=== PATIENT | female | born 1970 | race Caucasian/White ===

== ENCOUNTER 2016-07-03 15:52 | Emergency (ER) | payer OTHER ==
[~2016-07-03] VITALS: Ht 157.5 cm; Wt 51.0 kg
[~2016-07-03 15:52] MED LIST: ALBU2.5I INH; ALBU8I INH; DIAZ5 PO; LYRI150C PO; REQU4TAB3 PO
[2016-07-03 15:55] VITALS: BP 131/85; PULSE 88; RESP 16; TEMP 98.5; O2SAT 99
[2016-07-03] MEDS ORDERED: predniSONE 50 MG TAB PO ONE (16:30)
[2016-07-03] MEDS ORDERED: FAMOTIDINE 20 MG TAB PO ONE (16:30)
[2016-07-03] MEDS ORDERED: RESP: ALBUTEROL 2.5 MG/IPRATROPIUM 0.5 MG NEB (SCH) INH ONE (16:30)
--- NOTE | 2016-07-03 16:58 | PD ---
HPI Chief Complaint: Respiratory Symptoms Time Seen by Provider: 16:25 Travel History International Travel<30 days: No Contact w/Intl Traveler<30days: No Traveled to known affect area: No History of Present Illness HPI 46 year old female with a 4 days hx of persistent cough, wheezing, and nasal congestion. Patient has hx of sarcoidosis with chronic cough per patient. Apparently her nebulizer machine stopped working several days ago & her cough/ wheezing worsened since then. She denies fever, chills,chest pain, N/V. She does report acid reflux x 3days & difficulty sleeping due to her RLS. PFSH Past Medical History Asthma: Yes Blood Disorders: No Heart Rhythm Problems: No Cancer: Yes (HX CERVICAL) Cardiovascular Problems: No High Cholesterol: No Chemotherapy: No Chest Pain: No Congestive Heart Failure: No COPD: Yes Diminished Hearing: No Endocrine: No Genitourinary: No Immune Disorder: No Medical other: Yes (lung issues, restless leg syndrome) Neurologic: No Psychiatric: No Reproductive: No Respiratory: Yes (ASTHMA) Immunizations Current: Yes Pneumonia: Yes Radiation Therapy: No Sleep Apnea: No Tetanus Vaccination: Unknown ?: Not : 2 Para: 2 Tubal Ligation: Yes Past Surgical History Section: Yes (x2) Cholecystectomy: Yes Gynecologic Surgery: Yes (TUBAL LIGATION) Other Surgery: Yes Social History Alcohol Use: No Tobacco Use: Yes (1/2 -1 ppd) Substance Use: No Allergies-Medications (Allergen,Severity, Reaction): Coded Allergies: Levaquin (Unverified Allergy, Intermediate, 12/17/15) BONE PAIN Reported Meds & Prescriptions Reported Meds & Active Scripts Active Valium (Diazepam) 5 Mg Tab 10 Mg PO HS Resp: Albuterol 2.5 Mg/3 Ml Neb (Albuterol Sulfate) 2.5 Mg/3 Ml Nebu 2.5 Mg INH Q4H PRN 30 Days Reported Lyrica (Pregabalin) 150 Mg Cap 150 Mg PO TID Ventolin Hfa (Albuterol Sulfate) 8 Gm Aero 1 Puff INH TID * SHAKE WELL BEFORE USE * Requip 4 mg (ROPINIROLE HYDROCHLORIDE 4 mg) 4 Mg Tab 4 Mg PO HS Review of Systems Except as stated in HPI: all other systems reviewed are Neg Physical Exam Narrative GENERAL: Well appearing white female SKIN: Warm and dry. HEAD: Normocephalic. EYES: No scleral icterus. No injection or drainage. NECK: Supple, trachea midline. No JVD or lymphadenopathy. CARDIOVASCULAR: Regular rate and rhythm without murmurs, gallops, or rubs. RESPIRATORY: Breath sounds equal bilaterally. No accessory muscle use. bilateral expiratory wheezes. No rales or rhonchi. GASTROINTESTINAL: Abdomen soft, non-tender, nondistended. MUSCULOSKELETAL: No cyanosis, or edema. BACK: Nontender without obvious deformity. No CVA tenderness. Data Data Last Documented VS Vital Signs Date Time Temp Pulse Resp B/P Pulse Ox O2 Delivery O2 Flow Rate FiO2 07/03/16 15:55 98.5 88 16 131/85 99 Orders Electrocardiogram (07/03/16 16:27) Albuterol-Ipratropium Neb (Duoneb Neb) (07/03/16 16:30) Prednisone (Deltasone) (07/03/16 16:30) Famotidine (Pepcid) (07/03/16 16:30) MDM Medical Decision Making Medical Screen Exam Complete: Yes Emergency Medical Condition: Yes Differential Diagnosis asthma exacerbation vs URI vs PNA Narrative Course 46 year old female with a 4 days hx of persistent cough, wheezing, and nasal congestion. Patient has hx of sarcoidosis with chronic cough per patient. Apparently her nebulizer machine stopped working several days ago & her cough/ wheezing worsened since then. She denies fever, chills,chest pain, N/V. She does report acid reflux x 3days & difficulty sleeping due to her RLS. EKG: NSR rate [address] segment changes. Patient reevaluated after breathing [place] wheezing improved, patient reports symptoms improvement & requesting discharge. Diagnosis Primary Impression: Asthma Qualified Code: J45.31 - Mild persistent asthma with acute exacerbation Patient Instructions: General Instructions Scripts Nebulizer 1 Mis Mis #1 EA .ROUTE DIRECTED Ref 0 Prov:Griselda MembrenoP 07/03/16 Prednisone 20 Mg Tab20 Mg PO BID #14 TAB Ref 0 Prov:Griselda Membreno 07/03/16 Disposition: 01 DISCHARGE HOME Condition: Stable Griselda Membreno July 03, 2016 16:58
[2016-07-03] MEDS ORDERED: NEBULIZER1 MI1 (17:11)
[2016-07-03] MEDS ORDERED: PRED20 PO (17:11)
--- NOTE | 2016-07-03 17:23 | PD ---
Data Data Last Documented VS Vital Signs Date Time Temp Pulse Resp B/P Pulse Ox O2 Delivery O2 Flow Rate FiO2 07/03/16 17:17 70 95 07/03/16 15:55 98.5 16 131/85 Orders Electrocardiogram (07/03/16 16:27) Albuterol-Ipratropium Neb (Duoneb Neb) (07/03/16 16:30) Prednisone (Deltasone) (07/03/16 16:30) Famotidine (Pepcid) (07/03/16 16:30) MDM Supervised Visit with PAMELA: Yes Narrative Course The history, exam, and medical decision-making in the associated mid-level provider note were completed with my assistance. I reviewed and agree with the findings presented. I attest that I had a [id number] encounter with the patient on the same day, and personally performed and documented my assessment and findings in the medical record. *My assessment and Findings: 46 year-old woman with sarcoidosis, broken nebulizer times a couple days, and restless leg syndrome. She looks well. She has wheezing and rhonchi on exam but is only minimally labored. She is improved after steroids bronchodilators. Recommend outpatient follow-up for restless leg syndrome, we'll give her prescription for nebulizer, she has albuterol at home, and a short steroid taper. Diagnosis Primary Impression: Asthma Qualified Code: J45.31 - Mild persistent asthma with acute exacerbation Patient Instructions: General Instructions Departure Forms: Tests/Procedures Scripts Nebulizer 1 Mis Mis #1 EA .ROUTE DIRECTED Ref 0 Prov:Griselda MembrenoP 07/03/16 Prednisone 20 Mg Tab20 Mg PO BID #14 TAB Ref 0 Prov:Griselda Membreno [employer] 07/03/16 Disposition: 01 DISCHARGE HOME Condition: Stable Arias Harrison MD July 03, 2016 17:23
--- NOTE | 2016-07-04 14:41 | EKG ---
Date Performed: 07/03/2016 Time Performed: 16:32:55 PTAGE: 46 years EKG: Sinus rhythm WITH SHORT NH INTERVAL BORDERLINE ECG NO PREVIOUS TRACING DOCTOR: Fidencio Iglesias Interpretating Date/Time 07/04/2016 14:39:06
== END 2016-07-03 17:25 | disposition home or self-care (01) ==
LOC: NEPD 15:52
DX: J45.909 Unspecified asthma, uncomplicated (principal); D86.9 Sarcoidosis, unspecified; J44.9 Chronic obstructive pulmonary disease, unspecified; Z79.899 Other long term (current) drug therapy
CPT/HCPCS: 93005; 94664; 99283; J7512

== ENCOUNTER 2017-01-12 19:13 | Emergency (ER) | payer OTHER ==
[~2017-01-12] VITALS: Ht 157.5 cm; Wt 55.0 kg
[~2017-01-12 19:13] MED LIST changes: +NEBULIZER1 MI1; +PRED20 PO
[2017-01-12 19:31] VITALS: BP 142/63; PULSE 83; RESP 16; TEMP 98.5; O2SAT 97
--- NOTE | 2017-01-12 20:01 | PD ---
HPI Chief Complaint: Pain: Acute or Chronic Time Seen by Provider: 19:58 Travel History International Travel<30 days: No Contact w/Intl Traveler<30days: No Traveled to known affect area: No History of Present Illness HPI 46 yo F c/o R knee pain starting suddenly while walking. pt called ems because pt couldn't ambulate any further. no fall. pain constant and most prominent in the posterior aspect of the R knee. no similar prior episodes. pt wonders if she may have walked too far leading to injury. no stumbling/uneven ground. PFSH Past Medical History Asthma: Yes Blood Disorders: No Heart Rhythm Problems: No Cancer: Yes (HX CERVICAL) Cardiovascular Problems: No High Cholesterol: No Chemotherapy: No Chest Pain: No Congestive Heart Failure: No COPD: Yes Diminished Hearing: No Endocrine: No Genitourinary: No Immune Disorder: No Neurologic: No Psychiatric: No Reproductive: No Respiratory: Yes (ASTHMA) Immunizations Current: Yes Pneumonia: Yes Radiation Therapy: No Sleep Apnea: No ?: Not : 2 Para: 2 Tubal Ligation: Yes Past Surgical History Section: Yes (x2) Cholecystectomy: Yes Gynecologic Surgery: Yes (TUBAL LIGATION) Other Surgery: Yes Social History Alcohol Use: No Tobacco Use: Yes (1/2 -1 ppd) Substance Use: No Allergies-Medications (Allergen,Severity, Reaction): Coded Allergies: levofloxacin (Unverified Allergy, Intermediate, 01/12/17) BONE PAIN Reported Meds & Prescriptions Reported Meds & Active Scripts Active Nebulizer 1 Mis Mis 1 Ea .ROUTE DIRECTED Prednisone 20 Mg Tab 20 Mg PO BID Valium (Diazepam) 5 Mg Tab 10 Mg PO HS Resp: Albuterol 2.5 Mg/3 Ml Neb (Albuterol Sulfate) 2.5 Mg/3 Ml Nebu 2.5 Mg INH Q4H PRN 30 Days Reported Lyrica (Pregabalin) 150 Mg Cap 150 Mg PO TID Ventolin Hfa (Albuterol Sulfate) 8 Gm Aero 1 Puff INH TID * SHAKE WELL BEFORE USE * Requip 4 mg (ROPINIROLE HYDROCHLORIDE 4 mg) 4 Mg Tab 4 Mg PO HS Review of Systems General / Constitutional: No: Fever Cardiovascular: No: Chest Pain or Discomfort Respiratory: No: Cough, Shortness of Breath Musculoskeletal: Positive: Pain Physical Exam Narrative GENERAL: 46 yo F, WNWD, NAD, mild distress SKIN: Warm and dry. HEAD: Normocephalic. EYES: No scleral icterus. No injection or drainage. NECK: Supple, trachea midline. No JVD or lymphadenopathy. MUSCULOSKELETAL: No cyanosis, or edema. Minimal TTP R posterior Knee. No mass. No focal bony tenderness. No deformity. NO asymmetry of the calves or sign of DVT. BACK: Nontender without obvious deformity. No CVA tenderness. Data Data Last Documented VS Vital Signs Date Time Temp Pulse Resp B/P (MAP) Pulse Ox O2 Delivery O2 Flow Rate FiO2 01/12/17 19:31 98.5 83 16 142/63 (89) 97 Room Air VS noted Orders Orders Crutches (01/12/17 ) ^ Knee Immobilizer (01/12/17 20:13) MDM Medical Decision Making Medical Screen Exam Complete: Yes Emergency Medical Condition: Yes Medical Record Reviewed: Yes Differential Diagnosis dvt, tellez's cyst, fracture, dislocation of patella Narrative Course knee exam is essentially normal no focus of bony tenderness and fracture is considered very unlikely knee immobilizer and crutches refills for medications as below follow up with ortho Diagnosis Primary Impression: Injury of right knee Qualified Codes: S89.91XA - Unspecified injury of right lower leg, initial encounter Additional Impression: Medication refill Referrals: Shaheen Sol MD call for appointment Med/Other Pt SpecificInfo: Prescription(s) given Scripts Pregabalin (Lyrica) 150 Mg Cap 150 MG PO TID, #90 CAP 0 Refills Prov: Andrew Lebron MD 01/12/17 Ropinirole (Requip) 4 Mg Tab 4 MG PO HS, #30 TAB 0 Refills Prov: Andrew Lebron MD 01/12/17 Disposition: 01 DISCHARGE HOME Condition: Stable Andrew Lebron MD Jan 12, 2017 20:01
[2017-01-12] MEDS ORDERED: REQU4TAB3 PO (20:20)
[2017-01-12] MEDS ORDERED: LYRI150C PO (20:20)
== END 2017-01-12 20:44 | disposition home or self-care (01) ==
LOC: NEPK 19:13
DX: S89.91XA Unspecified injury of right lower leg, initial encounter (principal); J45.909 Unspecified asthma, uncomplicated; J44.9 Chronic obstructive pulmonary disease, unspecified; F17.200 Nicotine dependence, unspecified, uncomplicated; Y93.01 Activity, walking, marching and hiking; Z88.8 Allergy status to other drugs, medicaments and biological substances; Z76.0 Encounter for issue of repeat prescription; Z79.899 Other long term (current) drug therapy
CPT/HCPCS: 99284; E0113

== ENCOUNTER 2017-04-02 07:40 | Emergency (ER) | payer OTHER ==
[2017-04-02 07:41] VITALS: BP 158/76; PULSE 90; RESP 24; TEMP 98.7; O2SAT 94
[2017-04-02] MEDS ORDERED: VENTAER INH (07:50)
--- NOTE | 2017-04-02 08:11 | PD ---
HPI Chief Complaint: Respiratory Symptoms Time Seen by Provider: 08:02 Travel History International Travel<30 days: No Contact w/Intl Traveler<30days: No Traveled to known affect area: No History of Present Illness HPI The patient is a 47-year-old female who presents emergency department for shortness of breath and wheezing of one days duration. The patient has a history of COPD, asthma, and sarcoidosis. She also has a history of tobacco use. The patient states her shortness of breath started last night, she has been using nebulizers at home, with minimal relief. She denies any new cough, does complain of mild chest tightness associated with the wheezing. She denies any history of pulmonary embolus and, DVT, congestive heart failure. She denies any recent hospitalizations, prolonged travel, or recent surgery. She denies any assisted fever, chills, or sweats. The patient was being seen by her primary physician, Dr. Valenzuela, however, recently changed insurance and has to find a new physician. PFSH Past Medical History Asthma: Yes Blood Disorders: No Heart Rhythm Problems: No Cancer: Yes (HX CERVICAL) Cardiovascular Problems: No High Cholesterol: No Chemotherapy: No Chest Pain: No Congestive Heart Failure: No COPD: Yes Diminished Hearing: No Endocrine: No Genitourinary: No Immune Disorder: No Neurologic: No Psychiatric: No Reproductive: No Respiratory: Yes (ASTHMA) Immunizations Current: Yes Pneumonia: Yes Radiation Therapy: No Sleep Apnea: No Tetanus Vaccination: Unknown Influenza Vaccination: No ?: Not LMP: 04/01/17 : 2 Para: 2 Tubal Ligation: Yes Past Surgical History Section: Yes (x2) Cholecystectomy: Yes Gynecologic Surgery: Yes (TUBAL LIGATION) Other Surgery: Yes Social History Alcohol Use: Yes (rarely ) Tobacco Use: Yes Substance Use: No Allergies-Medications (Allergen,Severity, Reaction): Coded Allergies: levofloxacin (Unverified Allergy, Intermediate, 04/02/17) BONE PAIN Reported Meds & Prescriptions Reported Meds & Active Scripts Active Lyrica (Pregabalin) 150 Mg Cap 150 Mg PO TID Requip (Ropinirole) 4 Mg Tab 4 Mg PO HS Nebulizer 1 Mis Mis 1 Ea .ROUTE DIRECTED Reported Ventolin Hfa 18 GM Inh (Albuterol Sulfate) 90 Mcg/Act Aer 2 Puff INH Q4-6H PRN Review of Systems Except as stated in HPI: all other systems reviewed are Neg General / Constitutional: No: Fever HENT: No: Lightheadedness Cardiovascular: Positive: Chest Pain or Discomfort (tightness) Respiratory: Positive: Shortness of Breath, Wheezing, No: Cough Gastrointestinal: No: Nausea, Vomiting Musculoskeletal: No: Edema Physical Exam Narrative GENERAL: Awake, alert, 47-year-old female who appears her stated age and is in no acute respiratory distress. SKIN: Focused skin assessment warm/dry. HEAD: Atraumatic. Normocephalic. EYES: Pupils equal and round. No scleral icterus. No injection or drainage. ENT: No nasal bleeding or discharge. Breast positive tobacco. NECK: Trachea midline. No JVD. CARDIOVASCULAR: Regular rate and rhythm. No murmur appreciated. RESPIRATORY: No accessory muscle use. Prolonged expiratory phase and wheezing in all 4 lung mathews. GASTROINTESTINAL: Abdomen soft, non-tender, nondistended. MUSCULOSKELETAL: No obvious deformities. No clubbing. No cyanosis. No edema. NEUROLOGICAL: Awake and alert. No obvious cranial nerve deficits. Motor grossly within normal limits. Normal speech. PSYCHIATRIC: Appropriate mood and affect; insight and judgment normal. Data Data Last Documented VS Vital Signs Date Time Temp Pulse Resp B/P (MAP) Pulse Ox O2 Delivery O2 Flow Rate FiO2 04/02/17 07:41 98.7 90 24 158/76 (103) 94 Orders Orders Complete Blood Count With Diff (04/02/17 08:06) Basic Metabolic Panel (Bmp) (04/02/17 08:06) B-Type Natriuretic Peptide (04/02/17 08:06) Magnesium (Mg) (04/02/17 08:06) Iv Access Insert/Monitor (04/02/17 08:06) Electrocardiogram (04/02/17 08:06) Ecg Monitoring (04/02/17 08:06) Oximetry (04/02/17 08:06) Oxygen Administration (04/02/17 08:06) Chest, Single Ap (04/02/17 08:06) Sodium Chloride 0.9% Flush (Ns Flush) (04/02/17 08:15) Methylprednisolone So Succ Inj (Solumedr (04/02/17 08:15) Albuterol-Ipratropium Neb (Duoneb Neb) (04/02/17 08:15) Sodium Chlor 0.9% 1000 Ml Inj (Ns 1000 M (04/02/17 08:15) Labs Laboratory Tests Test 04/02/17 08:30 White Blood Count 9.5 TH/MM3 Red Blood Count 4.74 MIL/MM3 Hemoglobin 13.3 GM/DL Hematocrit 39.2 % Mean Corpuscular Volume 82.6 FL Mean Corpuscular Hemoglobin 28.1 PG Mean Corpuscular Hemoglobin Concent 34.0 % Red Cell Distribution Width 16.1 % Platelet Count 362 TH/MM3 Mean Platelet Volume 7.5 FL Neutrophils (%) (Auto) 52.0 % Lymphocytes (%) (Auto) 36.1 % Monocytes (%) (Auto) 9.1 % Eosinophils (%) (Auto) 2.5 % Basophils (%) (Auto) 0.3 % Neutrophils # (Auto) 5.0 TH/MM3 Lymphocytes # (Auto) 3.4 TH/MM3 Monocytes # (Auto) 0.9 TH/MM3 Eosinophils # (Auto) 0.2 TH/MM3 Basophils # (Auto) 0.0 TH/MM3 CBC Comment DIFF FINAL Differential Comment Blood Urea Nitrogen 7 MG/DL Creatinine 0.90 MG/DL Random Glucose 175 MG/DL Calcium Level 9.3 MG/DL Magnesium Level 2.0 MG/DL Sodium Level 136 MEQ/L Potassium Level 3.2 MEQ/L Chloride Level 101 MEQ/L Carbon Dioxide Level 30.0 MEQ/L Anion Gap 5 MEQ/L Estimat Glomerular Filtration Rate 68 ML/MIN B-Type Natriuretic Peptide 47 PG/ML MDM Medical Decision Making Medical Screen Exam Complete: Yes Emergency Medical Condition: Yes Medical Record Reviewed: Yes Interpretation(s) EKG reveals normal sinus rhythm with a rate of 77. No ischemic changes or ectopy noted. Last Impressions Chest X-Ray 04/02/17 0806 Signed Impressions: Service Date/Time: Sunday, April 02, 2017 08:16 - CONCLUSION: No acute disease. Norma Sebastian MD Laboratory Tests Test 04/02/17 08:30 White Blood Count 9.5 TH/MM3 Red Blood Count 4.74 MIL/MM3 Hemoglobin 13.3 GM/DL Hematocrit 39.2 % Mean Corpuscular Volume 82.6 FL Mean Corpuscular Hemoglobin 28.1 PG Mean Corpuscular Hemoglobin Concent 34.0 % Red Cell Distribution Width 16.1 % Platelet Count 362 TH/MM3 Mean Platelet Volume 7.5 FL Neutrophils (%) (Auto) 52.0 % Lymphocytes (%) (Auto) 36.1 % Monocytes (%) (Auto) 9.1 % Eosinophils (%) (Auto) 2.5 % Basophils (%) (Auto) 0.3 % Neutrophils # (Auto) 5.0 TH/MM3 Lymphocytes # (Auto) 3.4 TH/MM3 Monocytes # (Auto) 0.9 TH/MM3 Eosinophils # (Auto) 0.2 TH/MM3 Basophils # (Auto) 0.0 TH/MM3 CBC Comment DIFF FINAL Differential Comment Blood Urea Nitrogen 7 MG/DL Creatinine 0.90 MG/DL Random Glucose 175 MG/DL Calcium Level 9.3 MG/DL Magnesium Level 2.0 MG/DL Sodium Level 136 MEQ/L Potassium Level 3.2 MEQ/L Chloride Level 101 MEQ/L Carbon Dioxide Level 30.0 MEQ/L Anion Gap 5 MEQ/L Estimat Glomerular Filtration Rate 68 ML/MIN B-Type Natriuretic Peptide 47 PG/ML Differential Diagnosis Differential diagnosis includes bronchitis, pneumonia, reactive airway disease, COPD exacerbation, sarcoidosis exacerbation, pulmonary embolism, congestive heart failure, pulmonary edema, acute coronary syndrome. Narrative Course IV was established, labs are drawn and sent, and the patient was placed on cardiac telemetry monitoring and continuous pulse oximetry monitoring. EKG was ordered and interpreted. Chest x-ray was obtained. The patient received Solu Medrol 125 mg intravenously and duo nebs 3. Chest x-rays unremarkable. Laboratory evaluation is unremarkable. BNP is normal. The patient was reevaluated at 10 AM. The patient's oxygen saturations were 90-94% on room air. I do discussion with the patient regarding 23 hour observation versus outpatient follow-up, she would prefer to be discharged home. I will place the patient on steroids, I will refill her albuterol inhaler and albuterol nebulizers. She is advised to return if symptoms worsen or progress. Diagnosis Primary Impression: Asthma Qualified Codes: J45.21 - Mild intermittent asthma with (acute) exacerbation Patient Instructions: General Instructions Additional Instructions: Medications as directed. Follow-up with your primary physician. Return if symptoms worsen or progress. Stop smoking. Med/Other Pt SpecificInfo: Prescription(s) given Scripts Azithromycin (Zithromax Z-Vikram) 250 Mg Dspk 250 MG PO DIRECTED for Infection, #1 DSPK 0 Refills 500 MG (2 tabs) day 1, then 1 tab days 2-5. Prov: Ozzy Riley MD 04/02/17 Albuterol Neb (Albuterol Neb) 2.5 Mg/3 Ml Neb 2.5 MG NEB Q4HR NEB Y for SHORTNESS OF BREATH, #60 NEBULE 0 Refills Prov: Ozzy Riley MD 04/02/17 Albuterol 8.5 GM Inh (Proair Hfa 8.5 GM Inh) 90 Mcg/Act Aer 2 PUFF INH Q6H Y for SHORTNESS OF BREATH, #1 INHALER 0 Refills 108 mcg/actuation Prov: Ozzy Riley MD 04/02/17 Prednisone (Prednisone) 20 Mg Tab 40 MG PO DIRECTED for 5 Days, TAB 0 Refills Prov: Ozzy Riley MD 04/02/17 Disposition: 01 DISCHARGE HOME Condition: Stable Ozzy Riley MD Apr 02, 2017 08:11
[2017-04-02] MEDS ORDERED: SODIUM CHLORIDE 0.9% FLUSH 10 ML FLUSH IVF PRN (08:15)
[2017-04-02] MEDS ORDERED: methylPREDNISolone SOD SUCC 125 MG/2 ML VIAL IV PUSH ONE (08:15)
[2017-04-02] MEDS ORDERED: SODIUM CHLOR 0.9% 1000 ML INJ 1,000 ML IV ONE (08:15)
[2017-04-02] MEDS: RESP: ALBUTEROL 2.5 MG/IPRATROPIUM 0.5 MG NEB (SCH) INH ×2 (08:18→08:19)
--- NOTE | 2017-04-02 08:29 | RADRPT ---
EXAM DATE/TIME: 04/02/2017 08:16 [facility] COMPARISON: No previous studies available for comparison. INDICATIONS : Short of breath. MEDICAL HISTORY : Chronic obstructive pulmonary disease. Asthma, Cervical cancer, Sarcoidosis. SURGICAL HISTORY : Cholecystectomy. Tubal ligation. section. ENCOUNTER: Initial ACUITY: 1 day PAIN SCORE: 0/10 LOCATION: Bilateral chest FINDINGS: A single view of the chest demonstrates the lungs to be symmetrically aerated without evidence of mas s, infiltrate or effusion. The cardiomediastinal contours are unremarkable. Osseous structures are intact. CONCLUSION: No acute disease. Norma Sebastian MD on April 02, 2017 at 8:26 Board Certified Radiologist. This report was verified electronically.
[2017-04-02 08:48] LABS: BASOPHIL % 0.3 % (0.0-2.0); EOSINOPHIL # 0.2 TH/MM3 (0-0.4); EOSINOPHIL % 2.5 % (0.0-4.0); HEMATOCRIT 39.2 % (35.0-46.0); HEMOGLOBIN 13.3 GM/DL (11.6-15.3); LYMPH % 36.1 % (9.0-44.0); LYMPHOCYTE # 3.4 TH/MM3 (1.0-4.8); MEAN CELL VOLUME 82.6 FL (80.0-100.0); MEAN CORPUSCULAR HEMOGLOBIN 28.1 PG (27.0-34.0); MEAN PLATELET VOLUME 7.5 FL (7.0-11.0); MONO % 9.1 % (0.0-8.0); MONOCYTE # 0.9 TH/MM3 (0-0.9); PLATELET COUNT 362 TH/MM3 (150-450); RED BLOOD COUNT 4.74 MIL/MM3 (4.00-5.30); RED CELL DISTRIBUTION WIDTH 16.1 % (11.6-17.2); WHITE BLOOD COUNT 9.5 TH/MM3 (4.0-11.0)
[2017-04-02 09:03] LABS: CALCIUM 9.3 MG/DL (8.5-10.1); CREATININE 0.9 MG/DL (0.50-1.00)
[2017-04-02] MEDS ORDERED: PRED20 PO (10:05)
[2017-04-02] MEDS ORDERED: ZITHTAB PO (10:05)
[2017-04-02] MEDS ORDERED: ALBUAER3 INH (10:05)
[2017-04-02] MEDS ORDERED: ALBU0.08 NEB (10:05)
--- NOTE | 2017-04-02 16:44 | EKG ---
Date Performed: 04/02/2017 Time Performed: 08:21:02 PTAGE: 47 years EKG: Sinus rhythm NORMAL ECG PREVIOUS TRACING : 07/03/2016 16.32 Since the prior tracing, there has been no significant ro DOCTOR: Edward Lebron Interpretating Date/Time 04/02/2017 16:43:20
== END 2017-04-02 10:15 | disposition home or self-care (01) ==
LOC: NEPC 07:40
DX: J45.909 Unspecified asthma, uncomplicated (principal); R07.9 Chest pain, unspecified; J44.9 Chronic obstructive pulmonary disease, unspecified; Z87.891 Personal history of nicotine dependence; Z87.01 Personal history of pneumonia (recurrent); Z79.51 Long term (current) use of inhaled steroids; Z79.899 Other long term (current) drug therapy
CPT/HCPCS: 71045; 80048; 83735; 83880; 85025; 93005; 94640; 94664; 96361; 96374; 99285; J2930; J7030